=== PATIENT | female | born 1980 | race Caucasian/White ===

== ENCOUNTER 2024-02-23 08:10 | Inpatient (IN) | payer OTHER, SELFPAY ==
[2024-02-23] MEDS ORDERED: Ringers Lactate 1,000 ML IV ONE (08:29)
[2024-02-23] MEDS ORDERED: ONDANSETRON 4 MG/2 ML VIAL ONE (08:35)
[2024-02-23] MEDS ORDERED: MORPHINE 2 MG/ML SYR ONE (08:35)
[2024-02-23 08:37] LABS: Absolute Basophils 0.1 K/uL (0-0.5); Absolute Lymphocytes (CBC) 1.6 K/uL (0.7-4.9); Absolute Monocytes 2.7 K/uL (0.1-1.3); Absolute Neutrophil 15.8 K/uL (1.8-8.0); Basophils % 0.6 % (0-1.3); Eosinophils % 0.1 % (0-4.4); Hematocrit 38.5 % (36.0-45.0); Hemoglobin 13.2 g/dL (12.0-15.0); Lymphocytes % 8.1 % (15.3-44.8); MCH 31.5 pg (27.0-35.0); MCHC 34.2 g/dL (32.0-36.0); MCV 92.1 fL (80-100); MPV 8.4 fL (7.6-11.3); Monocytes % 13.4 % (3.3-12.3); Neutrophils % 77.8 % (41.7-73.7); Platelets 342 thou/uL (152-406); RBC Red Blood Cell Count 4.18 M/uL (3.86-4.86)
[2024-02-23 09:02] LABS: Blood Morphology Comment NOT SEEN (NOT SEEN); Platelet Estimate ADEQ; White Blood Cell Scan OK (OK)
--- NOTE | 2024-02-23 09:09 | RAD REPORT ---
[facility] DES[facility]2024 8:40 am CLINICAL HISTORY: weakness COMPARISON: No comparisons TECHNIQUE: Portable AP view of the chest. FINDINGS: The lungs are clear. No pneumothorax or effusion. The cardiomediastinal contours are unre markable. IMPRESSION: No acute cardiopulmonary process.
[2024-02-23 09:16] LABS: Anion Gap 11.8 mEq/L (5.0-15.0); Potassium 3.8 mEq/L (3.5-5.1)
[2024-02-23 09:17] LABS: Albumin 4.2 g/dL (3.4-5.0); Globulin 4.3 g/dL (2.3-3.5); Magnesium 2.6; Protein, Total 8.5 g/dL (6.4-8.2); Troponin High Sensitivity 20.6 (<58.9)
[2024-02-23 09:36] LABS: Bilirubin Direct 0.4 mg/dL (0-0.2); Bilirubin Indirect, Calculated 1.5 mg/dL (0.2-0.8); Bilirubin Total 1.9 mg/dL (0.2-1.0)
[2024-02-23] MEDS ORDERED: NA CHLORIDE 0.9% 100 ML ONE (09:41)
[2024-02-23] MEDS ORDERED: PIPERACIL/TAZO 3.375 GM VIAL IV ONE (09:41)
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
[2024-02-23 10:13] LABS: PT Prothrombin Time 14.2 SECONDS (9.4-12.5); PTT, Activated Partial Thromb 30.4 SECONDS (24.3-36.9); Protime INR 1.28
[2024-02-23] MEDS ORDERED: ACETAMINOPHEN 500 MG TAB PO PRN (10:46)
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
[2024-02-23] MEDS ORDERED: ZINC OXIDE 20% OINTMENT 60gm TOP PRN (11:48)
[2024-02-23] MEDS ORDERED: PETROLATUM (AQUAPHOR) JAR 396 GRAM TOP PRN (11:48)
[2024-02-23 16:52] LABS: Specific Gravity > 1.030 (1.005-1.030); Sqamous Epithelial <5 /HPF (None Seen); Urine Bacteria None Seen /HPF (<20); Urine Bilirubin NEGATIVE (Negative); Urine Blood 1+ (Negative); Urine Clarity Extremely Turbid (Clear); Urine Color Yellow (Yellow); Urine Crystals Unidentified Few /HPF (None Seen); Urine Culture Reflex Order NOT NEEDED; Urine Glucose NEGATIVE (Negative); Urine Ketones 2+ (Negative); Urine Micro Reflex YN NO BILL MICROSCOPIC; Urine Mucus 1+ /HPF (None Seen); Urine Nitrite NEGATIVE (Negative); Urine Protein 1+ (Negative); Urine RBC <5 /HPF (None Seen); Urine Urobilinogen Normal (Normal); Urine WBC <5 /HPF (<5); Urine WBC Clump Rare /HPF (None Seen); Urine Yeast (Budding) Trace /HPF (None Seen)
[2024-02-23] MEDS: HEPARIN 5000 UNIT/ML 1 ML VIAL SQ SCH (17:42)
[2024-02-23] MEDS: PIPER TAZO 3.375 GM in NA CHLORIDE 0.9% 100 ML IV SCH (17:42)
[2024-02-23] MEDS: Ringers Lactate 1,000 ML IV SCH (19:45)
[2024-02-23] MEDS: MORPHINE 2 MG/ML SYR IV PRN (19:45)
[2024-02-23 19:54] LABS: Absolute Basophils 0.1 K/uL (0-0.5); Absolute Eosinophils 0.1 K/uL (0-0.5); Absolute Lymphocytes (CBC) 2.5 K/uL (0.7-4.9); Absolute Monocytes 1.5 K/uL (0.1-1.3); Absolute Neutrophil 8.8 K/uL (1.8-8.0); Basophils % 0.9 % (0-1.3); Eosinophils % 0.7 % (0-4.4); Hematocrit 34.2 % (36.0-45.0); Lymphocytes % 19.1 % (15.3-44.8); MCH 32.3 pg (27.0-35.0); MCHC 35.2 g/dL (32.0-36.0); MCV 91.9 fL (80-100); MPV 8.1 fL (7.6-11.3); Monocytes % 11.5 % (3.3-12.3); Neutrophils % 67.8 % (41.7-73.7); Nucleated Red Blood Cells % 0.2 % (0-0); Platelets 291 thou/uL (152-406); RBC Red Blood Cell Count 3.72 M/uL (3.86-4.86); Red Cell Distribution Width 12.2 % (12.1-15.2)
[2024-02-23 20:16] LABS: Albumin 3.7 g/dL (3.4-5.0); Albumin/Globulin Ratio 1.1 (1.1-1.8); Anion Gap 11.3 mEq/L (5.0-15.0); Bilirubin Total 1.6 mg/dL (0.2-1.0); Globulin 3.5 g/dL (2.3-3.5); Magnesium 1.9 mg/dL (1.6-2.4); Phosphorus 1.9 mg/dL (2.5-4.9); Potassium 3.3 mEq/L (3.5-5.1); Protein, Total 7.2 g/dL (6.4-8.2)
[2024-02-23] MEDS: HYDROCODONE/APAP 5/325 MG TAB PO PRN (21:30)
[2024-02-24 06:32] LABS: Absolute Eosinophils 0.1 K/uL (0-0.5); Absolute Lymphocytes (CBC) 1.9 K/uL (0.7-4.9); Absolute Monocytes 0.9 K/uL (0.1-1.3); Absolute Neutrophil 5.5 K/uL (1.8-8.0); Basophils % 0.2 % (0-1.3); Eosinophils % 1.3 % (0-4.4); Hematocrit 33.6 % (36.0-45.0); Hemoglobin 11.8 g/dL (12.0-15.0); Lymphocytes % 22.8 % (15.3-44.8); MCH 32.3 pg (27.0-35.0); MCHC 35.2 g/dL (32.0-36.0); MCV 91.6 fL (80-100); MPV 8.2 fL (7.6-11.3); Monocytes % 10.9 % (3.3-12.3); Neutrophils % 64.8 % (41.7-73.7); Nucleated Red Blood Cells % 0.1 % (0-0); Platelets 281 thou/uL (152-406); RBC Red Blood Cell Count 3.67 M/uL (3.86-4.86); Red Cell Distribution Width 12.6 % (12.1-15.2)
[2024-02-24 06:39] LABS: Albumin 3.4 g/dL (3.4-5.0); Albumin/Globulin Ratio 0.9 (1.1-1.8); Anion Gap 10.3 mEq/L (5.0-15.0); Bilirubin Total 1.4 mg/dL (0.2-1.0); Globulin 3.6 g/dL (2.3-3.5); Phosphorus 2.3 mg/dL (2.5-4.9); Potassium 3.3 mEq/L (3.5-5.1)
[2024-02-24] MEDS: MUPIROCIN 2% OINT 22GM TUBE TOP SCH (08:43)
[2024-02-24] MEDS: POTASS/SODIUM PHOSPHATE 1 PKT POWD.PACK PO SCH (08:44)
[2024-02-24] MEDS: POTASSIUM 25 MEQ EFFERV TAB PO ONE (08:44)
[2024-02-24] MEDS ORDERED: MUPIROCIN 2% OINT 22GM TUBE TOP SCH ×2 (09:00)
[2024-02-24 11:29] LABS: C.diff Antigen/Toxin Ag neg : Tox neg (NEG : NEG); CDIFF INTERNAL NEG CONTROL White Background (WHITE BKGD); STOOL CONSISTENCY Liquid/Semi-Solid
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
--- NOTE | 2024-02-24 14:29 | EKG ---
Test Date: 2024-02-23 Test Time: 08:23:45 Surveying Crew Rodman: MALLORY MEASUREMENT RESULTS: Intervals: Rate: 123 VT: 136 QRSD: 88 QT: 328 QTc: 469 Webb: P: 57 VT: 136 QRS: 51 T: 23 INTERPRETIVE STATEMENTS: Sinus tachycardia Otherwise normal ECG No previous ECG available for comparison Electronically Signed On 02-24-24 14:28:14 CDT by Scar Drummond
[2024-02-24] MEDS: PHENOL 1.4% ORAL SPRAY 180ML MM PRN (14:31)
[2024-02-24] MEDS: METRONIDAZOLE 500mg IVPB 500 MG/100 ML BAG IV SCH (16:52)
[2024-02-24] MEDS: CEFTRIAXONE 1,000 MG in NA CHLORIDE 0.9% 50 ML IVPB SCH (17:08)
[2024-02-24] MEDS: POTASSIUM CL SA 10 MEQ TAB PO ONE (17:08)
[2024-02-24] MEDS: ZOLPIDEM TARTRATE 10 MG TABLET PO PRN (21:08)
[2024-02-25 05:33] VITALS: BMI 31.9
[2024-02-25 05:59] LABS: Absolute Eosinophils 0.3 K/uL (0-0.5); Absolute Lymphocytes (CBC) 1.5 K/uL (0.7-4.9); Absolute Monocytes 0.8 K/uL (0.1-1.3); Absolute Neutrophil 3.7 K/uL (1.8-8.0); Basophils % 0.4 % (0-1.3); Hematocrit 34.8 % (36.0-45.0); Hemoglobin 12.3 g/dL (12.0-15.0); Lymphocytes % 24.7 % (15.3-44.8); MCH 32.2 pg (27.0-35.0); MCHC 35.2 g/dL (32.0-36.0); MCV 91.5 fL (80-100); MPV 7.9 fL (7.6-11.3); Neutrophils % 58.9 % (41.7-73.7); Nucleated Red Blood Cells % 0.2 % (0-0); Platelets 295 thou/uL (152-406); Red Cell Distribution Width 12.2 % (12.1-15.2)
[2024-02-25 06:17] LABS: Albumin 3.4 g/dL (3.4-5.0); Albumin/Globulin Ratio 0.9 (1.1-1.8); Anion Gap 7.6 mEq/L (5.0-15.0); Bilirubin Total 0.7 mg/dL (0.2-1.0); Globulin 3.8 g/dL (2.3-3.5); Phosphorus 2.6 mg/dL (2.5-4.9); Potassium 3.6 mEq/L (3.5-5.1); Protein, Total 7.2 g/dL (6.4-8.2)
[2024-02-25] MEDS: POTASSIUM CL SA 10 MEQ TAB PO ONE (07:48)
[2024-02-25 07:58] VITALS: O2SAT 100
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
[2024-02-25] MEDS: HYDRALAZINE HCL 20 MG/ML VIAL IV PRN (10:54)
[2024-02-25 12:29] VITALS: BP 133/77; TEMP 98.7
== END 2024-02-25 12:30 | disposition home or self-care (01) | DRG 558 ==
LOC: ER 08:10 → ERHOLD 10:26 → 4TH 14:03
PROVIDERS: ADMIT Internal Medicine; ATTEND Internal Medicine
DX: M62.82 Rhabdomyolysis (principal); E87.20 Acidosis, unspecified; E87.1 Hypo-osmolality and hyponatremia; E86.0 Dehydration; E87.6 Hypokalemia; L55.9 Sunburn, unspecified; L30.4 Erythema intertrigo; I10 Essential (primary) hypertension; D72.829 Elevated white blood cell count, unspecified; R00.0 Tachycardia, unspecified; R74.01 Elevation of levels of liver transaminase levels; R68.0 Hypothermia, not associated with low environmental temperature; Z98.84 Bariatric surgery status; Z79.899 Other long term (current) drug therapy
CPT/HCPCS: 36415; 71045; 80048; 80053; 80076; 81001; 82550; 83605; 83735; 84100; 84132; 84484; 85025; 85610; 85730; 87040; 87045; 87046; 87177; 87209; 87324; 89055; 93005; 96374; 96375; 99285; J0360; J0696; J1644; J2270; J2405; J2543; J7120